=== PATIENT | female | born 1970 | race Caucasian/White ===

== ENCOUNTER 2018-09-29 18:56 | Emergency (ER) | payer MEDICAID ==
[~2018-09-29] VITALS: Ht 160 cm; Wt 79.0 kg
[2018-09-29 19:03] VITALS: BP 154/92; PULSE 79; RESP 20; Ht 160 cm; Wt 79.0 kg
[2018-09-29] MEDS ORDERED: ACETAMINOPHEN 325 MG TAB PO ONE (21:00)
[2018-09-29] MEDS ORDERED: DIPHTH/TET/ACEL PERTUSS (ADULT) 0.5 ML VIAL IM* ONE (21:00)
[2018-09-29] MEDS ORDERED: LIDOCAINE 1% (MDV) 20 ML INJ SC ONE (21:00)
[2018-09-29] MEDS ORDERED: ACET-141 PO (22:21)
[2018-09-29] MEDS ORDERED: CEPH-443 PO (22:21)
[2018-09-29] MEDS ORDERED: MUPIROCIN 2% 22 GM OINT TOP ONE (22:30)
--- NOTE | 2018-09-29 22:34 | ERD ---
ER Documentation Chief Complaint Chief Complaint Pt fell in a hole at a construction site lace to LFA, bandaged HPI 48-year-old female with no significant past history presents for a left arm laceration status post fall down a construction site ditch. States that she was walking and apparently the fencing was loose and she fell into the hole. She landed onto her buttock area. And lacerated her left arm against a nail. She states currently that she has 6 out of 10 pain. Pain is noted to be sharp and burning, nonradiating. She denies any head injury. She denies chest pain or shortness of breath. Denies abdominal pain, nausea, vomiting. She is ambulating normally. No other modifying factors noted, no treatments at home. ROS All systems reviewed and are negative except as per history of present illness. Medications Home Meds Active Scripts Acetaminophen* (Acetaminophen*) 500 MG Extra Strength Tablet, 500 MG PO Q4H PRN for PAIN AND OR ELEVATED TEMP, #30 TAB Prov:ROXANA MA 09/29/18 Cephalexin* (Keflex*) 500 Mg Capsule, 500 MG PO BID for infection prevention for 3 Days, #6 CAP Prov:ROXANA MA 09/29/18 Allergies Allergies: Coded Allergies: No Known Allergy (Unverified , 09/29/18) PMhx/Soc Medical and Surgical Hx: pt denies Medical Hx, pt denies Surgical Hx Hx Alcohol Use: No Hx Substance Use: No Hx Tobacco Use: No Smoking Status: Never smoker FmHx Family History: No coronary disease Physical Exam Vitals Vital Signs Date Temp Pulse Resp B/P (MAP) Pulse Ox O2 O2 Flow FiO2 Time Delivery Rate 09/29/18 98.9 79 20 154/92 98 19:03 (112) Physical Exam Const: No acute distress Head: Atraumatic, no fry sign, no contusion, no scalp depression noted Eyes: Normal Conjunctiva, PERRL, EOMI ENT: Normal External Ears, Nose and Mouth. no fluid leak from ear canals or nose. Neck: Full range of motion. No meningismus. no midline tenderness Resp: Clear to auscultation bilaterally, normal respiratory effort Cardio: Regular rate and rhythm, no murmurs, bilateral radial and dorsalis pedis pulses intact Abd: Soft, non tender, non distended. Normal bowel sounds Skin: Laceration noted over the left forearm about 4 inches, no active bleeding, the wound appears clean Back: No midline or flank tenderness Ext: No cyanosis, or edema, 5/5 muscle strength upper and lower extremities Neur: Awake and alert, bilateral upper and lower extremity sensation intact Psych: Normal Mood and Affect Results 24 hrs Current Medications Medications Dose Sig/Edward Start Time Status Last (Trade) Ordered Route PRN Stop Time Admin Dose Reason Admin Diphtheria/ 0.5 ml ONCE ONCE 09/29/18 DC 09/29/18 Tetanus/Acell IM* 21:00 20:42 Pertussis 09/29/18 21:01 (Adacel) 650 mg ONCE ONCE 09/29/18 DC 09/29/18 Acetaminophen PO 21:00 21:16 (Tylenol 09/29/18 21:01 Tab) Lidocaine 20 ml ONCE ONCE 09/29/18 DC (Xylocaine SC 21:00 1% (Mdv) 20 09/29/18 21:01 ml) Mupirocin 1 applic ONCE ONCE 09/29/18 09/29/18 (Bactroban) TOP 22:30 22:14 09/29/18 22:31 Procedures/MDM Medical Decision Making: Patient presents with left arm laceration. Patient appeared well on physical exam. 4 inch laceration noted over the left forearm, currently bleeding is controlled. ED course: Patient was given Tylenol. Symptoms improved with treatment. The left forearm laceration was repaired, see procedure note below Laceration Repair by me: Anesthesia: 1% lidocaine without epinephrine locally Location: Left forearm Tendon/Joint/Nerves: No injury Foreign body: None detected after copious irrigation and exploration Technique: Simple Interrupted Sutures, 11 stitches placed Complexity: No subcutaneous sutures/mucosal repair/edge excision Post Closure Length: 8cm Patient's bleeding was easily controlled in the department and there is no indication of anemia. No evidence of compartment syndrome, neurologic injury, vascular injury, open joint, tendon laceration, or foreign body. Patient is appropriate for outpatient follow up. 48 hour wound check. Scar minimization instructions given. Patient tolerated procedure well. Wound care instructions were given. Patient advised to return to ER in 2 days for wound check. Advised to return in 7 to 10 days for suture removal. Patient was given a tetanus shot Prescription(s): Patient given prescription for supportive medication(s). Patient was given prophylactic antibiotic for infection prophylaxis. Patient advised to follow up with PCP in 1-2 days. Patient advised to return to ED for new or worsening symptoms. Patient stable on discharge from the ED. Disclaimer: Inadvertent spelling and grammatical errors are likely due to EHR/dictation software use and do not reflect on the overall quality of patient care. Also, please note that the electronic time recorded on this note does not necessarily reflect the actual time of the patient encounter. Departure Diagnosis: Primary Impression: Laceration Condition: Fair Patient Instructions: Laceration, All Referrals: [facility] YOU HAVE RECEIVED A MEDICAL SCREENING EXAM AND THE RESULTS INDICATE THAT YOU DO NOT HAVE A CONDITION THAT REQUIRES URGENT TREATMENT IN THE EMERGENCY DEPARTMENT. FURTHER EVALUATION AND TREATMENT OF YOUR CONDITION CAN WAIT UNTIL YOU ARE SEEN IN YOUR DOCTORS OFFICE WITHIN THE NEXT 1-2 DAYS. IT IS YOUR RESPONSIBILITY TO MAKE AN APPOINTMENT FOR FOLOW-UP CARE. IF YOU HAVE A PRIMARY DOCTOR --you should call your primary doctor and schedule an appointment IF YOU DO NOT HAVE A PRIMARY DOCTOR YOU CAN CALL OUR PHYSICIAN REFERRAL HOTLINE AT IF YOU CAN NOT AFFORD TO SEE A PHYSICIAN YOU CAN CHOSE FROM THE FOLLOWING [facility] [address] [address] [facility]. [facility] [address] [facility] [facility] [address] [facility] [facility] [address] [facility]. [facility] [address] [facility]. [facility]. [address] Additional Instructions: Call your primary care doctor TOMORROW for an appointment during the next 1-2 days.See the doctor sooner or return here if your condition worsens before your appointment time. keep bandage on for 24 hours, then removes afterwards use soap and water two times a day and apply bactroban each time for 5 days return to ER in 2 days for wound check return to ER in 7-10 days for suture removal ROXANA MA DO Sep 29, 2018 22:34
[2018-09-29] MEDS ORDERED: MUPI22OI2 TOP (22:42)
== END 2018-09-29 22:50 | disposition home or self-care (01) ==
LOC: FTE 18:56
DX: S51.812A Laceration without foreign body of left forearm, initial encounter (principal); W18.39XA Other fall on same level, initial encounter; Y92.69 Other specified industrial and construction area as the place of occurrence of the external cause; Z23 Encounter for immunization
CPT/HCPCS: 12004; 90471; 90715; Z7502; Z7610

== ENCOUNTER 2018-10-01 11:24 | Emergency (ER) | payer SELFPAY ==
[~2018-10-01 11:24] MED LIST: ACET-141 PO; CEPH-443 PO; MUPI22OI2 TOP
== END 2018-10-01 12:52 | disposition left against medical advice (07) ==
LOC: E/R 11:24
DX: Z53.21 Procedure and treatment not carried out due to patient leaving prior to being seen by health care provider (principal)